=== PATIENT | male | born 1980 ===

== ENCOUNTER 2017-02-20 22:47 | Emergency (ER) | payer OTHER ==
[2017-02-20 22:55] VITALS: BP 145/86; PULSE 82; RESP 18; TEMP 98; O2SAT 100
--- NOTE | 2017-02-20 23:49 | ED PDOC ---
HPI: Male Pain Time Seen by Provider: 02/20/17 23:13 Chief Complaint (Nursing): Male Genitourinary Chief Complaint (Provider): genital itching History Per: Patient History/Exam Limitations: no limitations Onset/Duration Of Symptoms: Days (4) Current Symptoms Are (Timing): Still Present Quality Of Discomfort: Other (itching) Additional History Per: Patient Additional Complaint(s): 36 y/o male presents with itching/burning to penile head x 4 days. Denies fever , abdominal pain, penile discharge, testicular pain/swelling. Past Medical History Reviewed: Historical Data, Nursing Documentation, Vital Signs Vital Signs: Last Vital Signs Temp 98 F 02/20/17 22:50 Pulse 82 02/20/17 22:50 Resp 18 02/20/17 22:50 BP 145/86 02/20/17 22:50 Pulse Ox 100 02/20/17 22:50 - Medical History PMH: Hypercholesterolemia (NO MEDS) - Surgical History Surgical History: Appendectomy - Family History Family History: States: Unknown Family Hx - Immunization History Hx Tetanus Toxoid Vaccination: No Hx Influenza Vaccination: No Hx Pneumococcal Vaccination: No - Home Medications Home Medications: Ambulatory Orders Medication Instructions Recorded Cyclobenzaprine HCl [Flexeril] 1 tab PO TID PRN #25 tab 05/25/15 Naproxen [Naprosyn] 1 tab PO BID PRN #25 tab 05/25/15 Clotrimazole 1% Cream [Lotrimin 1%] 1 applic TP BID #1 tube 02/21/17 - Allergies Allergies/Adverse Reactions: Allergies Allergy/AdvReac Type Severity Reaction Status Date / Time No Known Allergies Allergy Verified 09/14/14 09:38 Review of Systems ROS Statement: Except As Marked, All Systems Reviewed And Found Negative Genitourinary Male: Positive for: Other (penile itching) Physical Exam - Reviewed Nursing Documentation Reviewed: Yes Vital Signs Reviewed: Yes - Physical Exam Appears: Positive for: Well, Non-toxic, No Acute Distress Head Exam: Positive for: ATRAUMATIC, NORMAL INSPECTION, NORMOCEPHALIC Skin: Positive for: Normal Color Eye Exam: Positive for: Normal appearance ENT: Positive for: Normal ENT Inspection Cardiovascular/Chest: Positive for: Regular Rate, Rhythm Respiratory: Positive for: Normal Breath Sounds Male Genital Exam: Positive for: other (uncircumsized male; erythema noted to glans when retracted; no swelling, discharge, lesions noted. exam chaperoned by Felicia Celis RN). Negative for: inguinal tenderness, lesions, urethral discharge - ECG O2 Sat by Pulse Oximetry: 100 - Progress ED Course And Treament: patient educated on proper hygiene; rx clotrimazole provided. Follow up PMD 2-3 days. Return to ED for worsening/concerning symptoms. Disposition - Clinical Impression Clinical Impression: Tiffani - Patient ED Disposition Is Patient to be Admitted: No Counseled Patient/Family Regarding: Studies Performed, Diagnosis, Need For Followup, Rx Given - Disposition Referrals: [facility] [Outside] Disposition: Routine/Home Disposition Time: 00:22 Condition: GOOD Prescriptions: Clotrimazole 1% Cream [Lotrimin 1%] 1 applic TP BID #1 tube Instructions: Tiffani (ED) Print Language: KINYARWANDA
== END 2017-02-21 00:37 | disposition home or self-care (01) ==
LOC: H.ER 22:47
DX: N48.1 Balanitis (principal); E78.00 Pure hypercholesterolemia, unspecified

== ENCOUNTER 2017-03-29 18:59 | Emergency (ER) | payer OTHER ==
[2017-03-29 19:04] VITALS: BP 150/86; PULSE 78; RESP 16; TEMP 98.8; O2SAT 99
[2017-03-29] MEDS ORDERED: Naproxen 500 MG TAB PO STA (19:12)
--- NOTE | 2017-03-29 19:18 | ED PDOC ---
Upper Extremity Pain/Injury Time Seen by Provider: 03/29/17 19:09 Chief Complaint (Nursing): Upper Extremity Problem/Injury Chief Complaint (Provider): Right shoulder pain History Per: Patient History/Exam Limitations: no limitations Onset/Duration Of Symptoms: Days (x 4) Current Symptoms Are (Timing): Still Present Additional Complaint(s): Zachary is a 36-year-old male who presents to the ED complaining of right shoulder pain, occurring intermittently for 4 days but worsened today. He describes sudden onset of the pain and denies fall/trauma. He admits to lifting heavy boxes at work. Pain is described as within the shoulder joint, and radiates down the right arm, causing difficulty lifting his right arm. No prior history of shoulder problems. PMD: None Past Medical History Reviewed: Historical Data, Nursing Documentation, Vital Signs Vital Signs: Last Vital Signs Temp 98.8 F 03/29/17 19:01 Pulse 78 03/29/17 19:01 Resp 16 03/29/17 19:01 BP 150/86 03/29/17 19:01 Pulse Ox 99 03/29/17 19:01 - Medical History PMH: Hypercholesterolemia (NO MEDS) - Surgical History Surgical History: Appendectomy - Family History Family History: States: Unknown Family Hx - Immunization History Hx Tetanus Toxoid Vaccination: No Hx Influenza Vaccination: No Hx Pneumococcal Vaccination: No - Home Medications Home Medications: Ambulatory Orders Medication Instructions Recorded Cyclobenzaprine HCl [Flexeril] 1 tab PO TID PRN #25 tab 05/25/15 Naproxen [Naprosyn] 1 tab PO BID PRN #25 tab 05/25/15 Clotrimazole 1% Cream [Lotrimin 1%] 1 applic TP BID #1 tube 02/21/17 Naproxen 1 tab PO BID PRN #14 tab 03/29/17 - Allergies Allergies/Adverse Reactions: Allergies Allergy/AdvReac Type Severity Reaction Status Date / Time No Known Allergies Allergy Verified 03/29/17 19:00 Review of Systems ROS Statement: Except As Marked, All Systems Reviewed And Found Negative Constitutional: Negative for: Other (Fall or trauma) Musculoskeletal: Positive for: Shoulder Pain (Right shoulder pain, radiating down right arm) Physical Exam - Reviewed Nursing Documentation Reviewed: Yes Vital Signs Reviewed: Yes - Physical Exam Appears: Positive for: Well, Non-toxic, No Acute Distress Head Exam: Positive for: ATRAUMATIC, NORMAL INSPECTION, NORMOCEPHALIC Skin: Positive for: Normal Color, Warm, Dry Eye Exam: Positive for: EOMI, Normal appearance, PERRL ENT: Positive for: Normal ENT Inspection Neck: Positive for: Normal, Painless ROM, Supple Cardiovascular/Chest: Positive for: Regular Rate, Rhythm. Negative for: Murmur Respiratory: Positive for: Normal Breath Sounds. Negative for: Respiratory Distress Gastrointestinal/Abdominal: Positive for: Normal Exam, Soft. Negative for: Tenderness Back: Positive for: Normal Inspection. Negative for: Vertebral Tenderness (or ran tenderness on exam) Extremity: Positive for: Normal ROM (Patient has difficulty adducting arm due to pain). Negative for: Swelling (No obvious bruising or swelling) Neurologic/Psych: Positive for: Alert, Oriented. Negative for: Motor/Sensory Deficits - ECG O2 Sat by Pulse Oximetry: 99 (RA) Pulse Ox Interpretation: Normal - Progress ED Course And Treament: xry of shoulder right: neg for calcification/neg for bony abnormality Naproxen 500 mg Medical Decision Making Medical Decision Making: Time: 19:12 Initial Impression: Right shoulder pain Initial Plan: --Patient given 500 mg Naproxen PO --Pending X-Ray Right Shoulder Scribe Attestation: Documented by Sonia Herring, acting as a scribe for Elisabet Domingo PA-C Provider Scribe Attestation: All medical record entries made by the Scribe were at my direction and personally dictated by me. I have reviewed the chart and agree that the record accurately reflects my personal performance of the history, physical exam, medical decision making, and the department course for this patient. I have also personally directed, reviewed, and agree with the discharge instructions and disposition. Disposition - Clinical Impression Clinical Impression: Shoulder strain - Patient ED Disposition Is Patient to be Admitted: No - Disposition Referrals: [facility] [Outside] Disposition: Routine/Home Disposition Time: 20:04 Condition: FAIR Prescriptions: Naproxen 1 tab PO BID PRN #14 tab PRN Reason: Pain, Moderate (4-7) Instructions: Shoulder Pain (ED) Forms: [facility] (Croatian), [facility] ED School/Work Excuse Print Language: IRAQI
--- NOTE | 2017-04-05 08:45 | RAD ---
PROCEDURE: Radiographs of the Right Shoulder HISTORY: SHOULDER PAIN COMPARISON: No prior. FINDINGS: BONES: Normal. No fracture. JOINTS: Normal. Glenohumeral and acromioclavicular joints preserved. No osteoarthritis. SOFT TISSUES: Normal. OTHER FINDINGS: None. IMPRESSION: Normal radiographs of the right shoulder.
== END 2017-03-29 20:10 | disposition home or self-care (01) ==
LOC: H.ER 18:59
DX: S43.401A Unspecified sprain of right shoulder joint, initial encounter (principal); X50.9XXA Other and unspecified overexertion or strenuous movements or postures, initial encounter; Y99.0 Civilian activity done for income or pay

== ENCOUNTER 2017-09-05 19:40 | Emergency (ER) | payer OTHER ==
[2017-09-05 19:45] VITALS: BMI 25.7
[2017-09-05 19:48] VITALS: RESP 16; TEMP 99.2; O2SAT 99
[2017-09-05 21:03] LABS: BASO % 0.7 % (0.0-2.0); EOS # 0.2 K/uL (0.0-0.7); EOS % 3.5 % (0.0-4.0); HEMOGLOBIN 13.9 g/dL (12.0-18.0); LYMPH # 2.3 K/uL (1.0-4.3); LYMPH % 36.1 % (20.0-40.0); MEAN CELL VOLUME 92.3 fl (80.0-94.0); MEAN CORPUSCULAR HEMOGLOBIN 30.7 pg (27.0-31.0); MEAN CORPUSCULAR HGB CONC 33.3 g/dL (33.0-37.0); MEAN PLATELET VOLUME 9.1 fl (7.2-11.7); MONO # 0.7 K/uL (0.0-0.8); MONO % 11.5 % (0.0-10.0); NEUT % 48.2 % (50.0-75.0); NRBC % 0.2 % (0.0-0.0); RBC 4.52 Mil/uL (4.40-5.90); RED CELL DISTRIBUTION WIDTH 13.5 % (11.5-14.5); WHITE BLOOD COUNT 6.3 K/uL (4.8-10.8)
--- NOTE | 2017-09-05 21:14 | US ---
EXAM: US Abdomen Limited, Right Upper Quadrant CLINICAL HISTORY: 37 years old, male; Pain; Abdominal pain; Epigastric; Additional info: Ruq pain TECHNIQUE: Real-time ultrasound of the right upper quadrant with image documentation. COMPARISON: No relevant prior studies available. FINDINGS: Liver: Fatty infiltration. No mass. No intrahepatic ductal dilatation. Gallbladder: No gallstones. No wall thickening. No pericholecystic fluid. No sonographic Singh's sign. Common bile duct: No dilatation. No stones. Pancreas: Obscured by overlying bowel gas. Right kidney: Normal echogenicity. No hydronephrosis. IMPRESSION: 1.No acute findings. 2.Non-acute findings are described above.
[2017-09-05 21:21] LABS: URINE BILIRUBIN NEGATIVE (NEGATIVE); URINE BLOOD NEGATIVE (NEGATIVE); URINE CLARITY CLEAR (Clear); URINE COLOR STRAW (YELLOW); URINE GLUCOSE (UA) NEG (Normal); URINE LEUKOCYTE ESTERASE NEG Leu/uL (Negative); URINE NITRATE NEGATIVE (NEGATIVE); URINE PROTEIN NEGATIVE (NEGATIVE); URINE UROBILINOGEN 0.2-1.0 mg/dL (0.2-1.0)
[2017-09-05 21:50] LABS: ALB/GLOB RATIO 1.4 (1.0-2.1); ALBUMIN 4.6 g/dL (3.5-5.0); GFR AFRICAN-AMERICAN > 60; GFR NON-AFRICAN AMERICAN > 60; LIPASE 321 U/L (23-300)
[2017-09-05 21:53] LABS: ALT/SGPT 130 U/L (21-72); AST/SGOT 76 U/L (17-59); BLOOD UREA NITROGEN 13 mg/dl (9-20)
--- NOTE | 2017-09-05 22:11 | ED PDOC ---
HPI: Abdomen Time Seen by Provider: 09/05/17 20:11 Chief Complaint (Nursing): Abdominal Pain Chief Complaint (Provider): Abdominal pain History Per: Patient History/Exam Limitations: no limitations Onset/Duration Of Symptoms: Days (2), Intermittent Episodes Additional Complaint(s): Patient is a 37 y/o male with a past medical history of hypertension presenting to the emergency department for mild right sided abdominal pain ongoing for two days. Reports that the pain is intermittent and radiates to his right flank. Denies nausea, vomiting, diarrhea, fever, shortness of breath, and other complaints. PCP: none provided. Past Medical History Reviewed: Historical Data, Nursing Documentation, Vital Signs Vital Signs: Last Vital Signs Temp 99.2 F 09/05/17 19:45 Pulse 77 09/05/17 19:45 Resp 16 09/05/17 19:45 BP 143/88 09/05/17 19:45 Pulse Ox 99 09/05/17 23:20 - Medical History PMH: HTN, Hypercholesterolemia (NO MEDS) - Surgical History Surgical History: Appendectomy - Family History Family History: States: Unknown Family Hx - Social History Current smoker - smoking cessation education provided: No Ex-Smoker (has not smoked in the last 12 months): No Alcohol: None Drugs: Denies - Immunization History Hx Tetanus Toxoid Vaccination: No Hx Influenza Vaccination: No Hx Pneumococcal Vaccination: No - Home Medications Home Medications: Ambulatory Orders Medication Instructions Recorded Cyclobenzaprine HCl [Flexeril] 1 tab PO TID PRN #25 tab 05/25/15 Naproxen [Naprosyn] 1 tab PO BID PRN #25 tab 05/25/15 Clotrimazole 1% Cream [Lotrimin 1%] 1 applic TP BID #1 tube 02/21/17 Naproxen 1 tab PO BID PRN #14 tab 03/29/17 Dicyclomine [Bentyl] 20 mg PO Q12 PRN #20 tab 09/05/17 - Allergies Allergies/Adverse Reactions: Allergies Allergy/AdvReac Type Severity Reaction Status Date / Time No Known Allergies Allergy Verified 09/05/17 19:44 Review of Systems ROS Statement: Except As Marked, All Systems Reviewed And Found Negative Constitutional: Negative for: Fever Respiratory: Negative for: Shortness of Breath Gastrointestinal: Positive for: Abdominal Pain (mild, right sided, intermittent , and radiates to right flank). Negative for: Nausea, Vomiting, Diarrhea Physical Exam - Reviewed Nursing Documentation Reviewed: Yes Vital Signs Reviewed: Yes - Physical Exam Appears: Positive for: Well, Non-toxic, No Acute Distress Head Exam: Positive for: ATRAUMATIC, NORMAL INSPECTION, NORMOCEPHALIC Skin: Positive for: Normal Color, Warm, Dry Eye Exam: Positive for: Normal appearance Neck: Positive for: Normal, Supple Cardiovascular/Chest: Positive for: Regular Rate, Rhythm Respiratory: Negative for: Accessory Muscle Use, Respiratory Distress Gastrointestinal/Abdominal: Positive for: Normal Exam, Soft. Negative for: Tenderness Extremity: Positive for: Normal ROM. Negative for: Pedal Edema Neurologic/Psych: Positive for: Alert, Oriented (x3) - Laboratory Results Result Diagrams: 09/05/17 20:57 09/05/17 20:57 - ECG ECG: Positive for: Interpreted By Me, Viewed By Me ECG Rhythm: Positive for: Sinus Rhythm (normal). Negative for: ST/T Changes Rate: 74 O2 Sat by Pulse Oximetry: 99 (RA) Pulse Ox Interpretation: Normal Medical Decision Making Medical Decision Making: Time: 20:28 Initial impression: Patient is 37 y/o male presenting with right sided abdominal pain. Initial plan: CT Abdominal/pelvic without contrast EKG ED Urine Dipstick Pepcid 20 mg IV Toradol 15 mg IV Reevaluation Reassess: 21:14 FINDINGS:US Abdomen Limited, Right Upper Quadrant Liver: Fatty infiltration. No mass. No intrahepatic ductal dilatation. Gallbladder: No gallstones. No wall thickening. No pericholecystic fluid. No sonographic Singh's sign. Common bile duct: No dilatation. No stones. Pancreas: Obscured by overlying bowel gas. Right kidney: Normal echogenicity. No hydronephrosis. IMPRESSION: 1. No acute findings. 2. Non-acute findings are described above. 20:41 FINDINGS:CT Abdomen and Pelvis Without Intravenous Contrast Lower thorax: No acute findings. ABDOMEN: Liver: Fatty infiltration with focal sparing. Gallbladder and bile ducts: No calcified stones. No ductal dilation. Pancreas: Unremarkable. No ductal dilation. Spleen: No splenomegaly. Adrenals: No mass. Kidneys and ureters: No renal calculi. No hydronephrosis. Stomach and bowel: No definite mural thickening. No obstruction. Appendix: Appendectomy. PELVIS: Bladder: Unremarkable. No stones. Reproductive: Unremarkable as visualized. ABDOMEN and PELVIS: Intraperitoneal space: No significant fluid collection. No free air. Bones/joints: No acute fracture. Soft tissues: Tiny LEFT inguinal hernia containing fat. Vasculature: Unremarkable. No aneurysm. Lymph nodes: No pathologically enlarged lymph nodes. IMPRESSION: 1. No definite CT evidence of urolithiasis. 2. Incidental/non-acute findings are described above. 23:14 Patient reports of improvement of symptoms. Patient is stable for discharge home. Diagnosis: Abdominal Pain Scribe Attestation: Documented by Bonnie Terrell, acting as a scribe for Adin Matthew MD. Provider Scribe Attestation: All medical record entries made by the Scribe were at my direction and personally dictated by me. I have reviewed the chart and agree that the record accurately reflects my personal performance of the history, physical exam, medical decision making, and the department course for this patient. I have also personally directed, reviewed, and agree with the discharge instructions and disposition. Disposition - Clinical Impression Clinical Impression: Abdominal pain - Patient ED Disposition Is Patient to be Admitted: No - Disposition Disposition: Routine/Home Disposition Time: 23:14 Condition: IMPROVED Prescriptions: Dicyclomine [Bentyl] 20 mg PO Q12 PRN #20 tab PRN Reason: abdominal pain Instructions: Abdominal Pain (ED) Forms: [facility] (Nepalese) Print Language: BARBADIAN
--- NOTE | 2017-09-05 22:41 | CT ---
EXAM: CT Abdomen and Pelvis Without Intravenous Contrast CLINICAL HISTORY: 37 years old, male; Pain; Abdominal pain; Flank; Right; Patient HX: Appendectomy; Additional info: Renal colic TECHNIQUE: Axial computed tomography images of the abdomen and pelvis without intravenous contrast. All CT scans at this facility use one or more dose reduction techniques, viz.: automated exposure control; ma/kV adjustment per patient size (including targeted exams where dose is matched to indication; i.e. head); or iterative reconstruction technique. Coronal and sagittal reformatted images were created and reviewed. COMPARISON: US - ABDOMEN LIMITED (GB INCLUDED) 2017-09-05 20:38 FINDINGS: Lower thorax: No acute findings. ABDOMEN: Liver: Fatty infiltration with focal sparing. Gallbladder and bile ducts: No calcified stones. No ductal dilation. Pancreas: Unremarkable. No ductal dilation. Spleen: No splenomegaly. Adrenals: No mass. Kidneys and ureters: No renal calculi. No hydronephrosis. Stomach and bowel: No definite mural thickening. No obstruction. Appendix: Appendectomy. PELVIS: Bladder: Unremarkable. No stones. Reproductive: Unremarkable as visualized. ABDOMEN and PELVIS: Intraperitoneal space: No significant fluid collection. No free air. Bones/joints: No acute fracture. Soft tissues: Tiny LEFT inguinal hernia containing fat. Vasculature: Unremarkable. No aneurysm. Lymph nodes: No pathologically enlarged lymph nodes. IMPRESSION: 1. No definite CT evidence of urolithiasis. 2. Incidental/non-acute findings are described above.
[2017-09-05 23:49] VITALS: BP 148/90; PULSE 88
== END 2017-09-05 23:49 | disposition home or self-care (01) ==
LOC: H.ER 19:40
DX: R10.9 Unspecified abdominal pain (principal); I10 Essential (primary) hypertension; E78.00 Pure hypercholesterolemia, unspecified
CPT/HCPCS: 74176; 76705; 80053; 81003; 83690; 85025; 96374; 96375; 99283; J1885

== ENCOUNTER 2017-10-01 00:42 | Emergency (ER) | payer OTHER ==
[2017-10-01 00:42] VITALS: BMI 25.7
[2017-10-01 01:57] VITALS: BP 137/83; PULSE 96; RESP 16; TEMP 98.6; O2SAT 98
[2017-10-01 03:46] LABS: BASO % 0.6 % (0.0-2.0); EOS % 0.4 % (0.0-4.0); HEMOGLOBIN 14.6 g/dL (12.0-18.0); LYMPH # 1.8 K/uL (1.0-4.3); LYMPH % 32.2 % (20.0-40.0); MEAN CELL VOLUME 89.5 fl (80.0-94.0); MEAN CORPUSCULAR HEMOGLOBIN 30.8 pg (27.0-31.0); MEAN CORPUSCULAR HGB CONC 34.4 g/dL (33.0-37.0); MEAN PLATELET VOLUME 8.7 fl (7.2-11.7); MONO # 0.5 K/uL (0.0-0.8); MONO % 9.7 % (0.0-10.0); NEUT # 3.1 K/uL (1.8-7.0); NEUT % 57.1 % (50.0-75.0); NRBC % 0.2 % (0.0-0.0); RBC 4.72 Mil/uL (4.40-5.90); RED CELL DISTRIBUTION WIDTH 13.4 % (11.5-14.5); WHITE BLOOD COUNT 5.4 K/uL (4.8-10.8)
--- NOTE | 2017-10-01 04:13 | ED PDOC ---
HPI:Nausea, Vomiting, Diarrhea Time Seen by Provider: 10/01/17 03:16 Chief Complaint (Nursing): Alcohol Ingestion Chief Complaint (Provider): Vomiting History Per: Patient History/Exam Limitations: no limitations Current Symptoms Are (Timing): Still Present Quality Of Discomfort: denies: "Pain" Associated Symptoms: denies: Fever, Diarrhea, Chest Pain Additional Complaint(s): 37 year old male presents to ED with complaints of persistent vomiting since earlier today and has a history of alcohol abuse. Notes emesis is non-bloody and non-bilious. Admits to drinking for the past 4 days with his last drink x12 hours [employer]. (-) abdominal pain, diarrhea, fever, cough, SOB, or chest pain. PCP: None Past Medical History Reviewed: Historical Data, Nursing Documentation, Vital Signs Vital Signs: Last Vital Signs Temp 98.6 F 10/01/17 01:54 Pulse 96 H 10/01/17 01:54 Resp 16 10/01/17 01:54 BP 137/83 10/01/17 01:54 Pulse Ox 98 10/01/17 01:54 - Medical History PMH: HTN, Hypercholesterolemia (NO MEDS) - Surgical History Surgical History: Appendectomy - Family History Family History: States: Unknown Family Hx - Social History Current smoker - smoking cessation education provided: No Ex-Smoker (has not smoked in the last 12 months): No Alcohol: Other (hx of alcohol abuse: drinks 3-4 times weekly) - Immunization History Hx Tetanus Toxoid Vaccination: No Hx Influenza Vaccination: No Hx Pneumococcal Vaccination: No - Home Medications Home Medications: Ambulatory Orders Medication Instructions Recorded Cyclobenzaprine HCl [Flexeril] 1 tab PO TID PRN #25 tab 05/25/15 Naproxen [Naprosyn] 1 tab PO BID PRN #25 tab 05/25/15 Clotrimazole 1% Cream [Lotrimin 1%] 1 applic TP BID #1 tube 02/21/17 Naproxen 1 tab PO BID PRN #14 tab 03/29/17 Dicyclomine [Bentyl] 20 mg PO Q12 PRN #20 tab 09/05/17 Famotidine [Pepcid] 20 mg PO Q12 #14 tab 10/01/17 Ondansetron ODT [Zofran ODT] 4 mg PO Q6 PRN #8 odt 10/01/17 - Allergies Allergies/Adverse Reactions: Allergies Allergy/AdvReac Type Severity Reaction Status Date / Time No Known Allergies Allergy Verified 09/05/17 19:44 Review of Systems ROS Statement: Except As Marked, All Systems Reviewed And Found Negative Constitutional: Negative for: Fever Cardiovascular: Negative for: Chest Pain Respiratory: Negative for: Cough, Shortness of Breath Gastrointestinal: Positive for: Vomiting. Negative for: Abdominal Pain, Diarrhea Physical Exam - Reviewed Nursing Documentation Reviewed: Yes Vital Signs Reviewed: Yes - Physical Exam Appears: Positive for: Non-toxic, No Acute Distress Skin: Positive for: Normal Color, Warm, Dry Eye Exam: Positive for: Normal appearance ENT: Positive for: Normal ENT Inspection Cardiovascular/Chest: Positive for: Regular Rate, Rhythm. Negative for: Murmur Respiratory: Positive for: Normal Breath Sounds. Negative for: Respiratory Distress Gastrointestinal/Abdominal: Positive for: Normal Exam, Soft. Negative for: Tenderness Extremity: Negative for: Deformity Neurologic/Psych: Positive for: Alert, Oriented. Negative for: Motor/Sensory Deficits - Laboratory Results Result Diagrams: 10/01/17 03:42 10/01/17 03:42 - ECG O2 Sat by Pulse Oximetry: 98 (RA) Pulse Ox Interpretation: Normal Medical Decision Making Medical Decision Makin Initial impression: vomiting in setting of alcohol abuse Initial plan: * EtOH serum * Labs * UDrug screen * Lipase * NS IV * Pepcid 20mg IV * Zofran Inj 4mg IV * Accucheck * UA * Re-eval 0521 Labs reviewed: no clinically significant abnormalities except for elevated blood alcohol level. Patient counseled regarding risks of excessive alcohol use. Patient stable for discharge home. Dx: alcohol abuse and gastritis Condition: improved Scribe Attestation: Documented by Adriane Warren acting as a scribe for Adin Matthew MD. Scribe Attestation: All medical record entries made by the Scribe were at my direction and personally dictated by me. I have reviewed the chart and agree that the record accurately reflects my personal performance of the history, physical exam, medical decision making, and the department course for this patient. I have also personally directed, reviewed, and agree with the discharge instructions and disposition. Disposition - Disposition Disposition: Routine/Home Disposition Time: 05:21 Condition: IMPROVED Prescriptions: Famotidine [Pepcid] 20 mg PO Q12 #14 tab Ondansetron ODT [Zofran ODT] 4 mg PO Q6 PRN #8 odt PRN Reason: Nausea/Vomiting Forms: [facility] (Cameroonian)
[2017-10-01] MEDS: Sodium Chloride 0.9% 1,000 ML IV STA (04:31)
[2017-10-01 05:13] LABS: ALB/GLOB RATIO 1.5 (1.0-2.1); ALBUMIN 4.5 g/dL (3.5-5.0); ALT/SGPT 191 U/L (21-72); AST/SGOT 249 U/L (17-59); BLOOD UREA NITROGEN 17 mg/dl (9-20); CALCIUM 8.3 mg/dL (8.4-10.2); GFR AFRICAN-AMERICAN > 60; GFR NON-AFRICAN AMERICAN > 60; LIPASE 238 U/L (23-300)
== END 2017-10-01 05:37 | disposition home or self-care (01) ==
LOC: H.ER 00:42
DX: K29.70 Gastritis, unspecified, without bleeding (principal); F10.10 Alcohol abuse, uncomplicated; E78.00 Pure hypercholesterolemia, unspecified; I10 Essential (primary) hypertension
CPT/HCPCS: 80053; 80320; 82948; 83690; 85025; 96360; 99282; J2405; J7040

== ENCOUNTER 2018-06-06 08:03 | Emergency (ER) | payer OTHER ==
[2018-06-06 08:05] VITALS: BMI 26.5
--- NOTE | 2018-06-06 09:16 | ED PDOC ---
HPI: Abdomen Time Seen by Provider: 06/06/18 08:31 Chief Complaint (Nursing): Abdominal Pain Additional Complaint(s): 38 y/o M with a PMHx of appedectomy 7 years ago, presents to ED complaining of b/l lower abdominal pain that began 3 days ago. Pain is described as burning, intermittent, on bilateral lower quadrants, radiates to suprapubic, both testes and lower back. Pt reports having subjective fever yesterday and today. Pt has soft bowel movements but today he had hard stools with NO blood or mucus. Pt reports urinary frequency but denies dysuria, penile discharge, recent trauma or saddle anesthesia. Pt is sexually active with only, no Hx of STI's. PMD: none Meds: none NKA -PMHx: Pt was told to have high BP and high cholesterol, was instructed for lifestyle changes but never followed up. -PSHx: appendectomy 7 years ago -FHx: NC -SHx: drinks 2-3 shots of tequila every night, NO tobacco and NO rec drugs. Past Medical History Vital Signs: Last Vital Signs Temp 98.9 F 06/06/18 08:05 Pulse 68 06/06/18 08:05 Resp 16 06/06/18 08:05 BP 154/90 H 06/06/18 08:05 Pulse Ox 99 06/06/18 08:05 - Medical History PMH: HTN, Hypercholesterolemia (NO MEDS) - Surgical History Surgical History: Appendectomy - Family History Family History: States: Unknown Family Hx - Social History Current smoker - smoking cessation education provided: No - Immunization History Hx Tetanus Toxoid Vaccination: No Hx Influenza Vaccination: No Hx Pneumococcal Vaccination: No - Home Medications Home Medications: Ambulatory Orders Medication Instructions Recorded Cyclobenzaprine HCl [Flexeril] 1 tab PO TID PRN #25 tab 05/25/15 Naproxen [Naprosyn] 1 tab PO BID PRN #25 tab 05/25/15 Clotrimazole 1% Cream [Lotrimin 1%] 1 applic TP BID #1 tube 02/21/17 Naproxen 1 tab PO BID PRN #14 tab 03/29/17 Dicyclomine [Bentyl] 20 mg PO Q12 PRN #20 tab 09/05/17 Famotidine [Pepcid] 20 mg PO Q12 #14 tab 10/01/17 Ondansetron ODT [Zofran ODT] 4 mg PO Q6 PRN #8 odt 10/01/17 - Allergies Allergies/Adverse Reactions: Allergies Allergy/AdvReac Type Severity Reaction Status Date / Time No Known Allergies Allergy Verified 06/06/18 08:22 Review of Systems Constitutional: Positive for: Fever. Negative for: Chills Eyes: Negative for: Pain, Vision Change ENT: Negative for: Throat Pain Cardiovascular: Negative for: Chest Pain, Palpitations Respiratory: Negative for: Cough, Shortness of Breath, Pleuritic Pain, Wheezing Gastrointestinal: Positive for: Abdominal Pain, Constipation. Negative for: Nausea, Vomiting, Diarrhea, Melena, Hematochezia, Hematemesis Genitourinary Male: Positive for: Frequency, Scrotal Pain. Negative for: Dysuria, Incontinence, Hematuria, Penile Discharge, Rash, Penile Pain Musculoskeletal: Positive for: Back Pain Skin: Negative for: Rash, Lesions Physical Exam - Physical Exam Appears: Positive for: Well, No Acute Distress Head Exam: Positive for: ATRAUMATIC, NORMAL INSPECTION Skin: Positive for: Normal Color. Negative for: Pallor, Rash, Jaundice Eye Exam: Positive for: Normal appearance, EOMI ENT: Negative for: Nasal Congestion, Pharyngeal Erythema, Tonsillar Exudate Neck: Positive for: Normal, Painless ROM, Supple Cardiovascular/Chest: Positive for: Regular Rate, Rhythm Respiratory: Positive for: Normal Breath Sounds. Negative for: Rhonchi, Wheezing Gastrointestinal/Abdominal: Positive for: Bowel Sounds, Soft, Tenderness (on b/l lower quadrants. ). Negative for: Organomegaly, Mass, Distended, Guarding, Aleena ound Male Genital Exam: Positive for: normal genitalia. Negative for: inguinal tenderness, scrotum tenderness (R), scrotum tenderness (L), urethral discharge Extremity: Positive for: Normal ROM Neurologic/Psych: Positive for: Alert, Oriented - Laboratory Results Result Diagrams: 06/06/18 09:27 06/06/18 09:27 - ECG O2 Sat by Pulse Oximetry: 99 Medical Decision Making Medical Decision Making: At 09:05, pt was evaluated and examined with Dr Matias. Pt not seen in discomfort, talking pleasantly with in the room. --CBC, CMP, U/A, Urine Culture and Abdominal X-ray (obstructive series ordered. --PO Tylenol ordered for pain management. At 10:30, pt reported pain has improved after medication, intesntiy has decreased for 04/11 to 01/09. -Labs reviewed, CBC wnl, CMP remarkable for transaminitis -X-ray of abdomen consistent with constipation. At 12:10, pt reports pain is not present anymore. -Lipase WNL. -Pt counseled on elevated LFT's. Alcohol cessation was recommended with dietary changes. -Pt instructed to increase water intake, increase vegetables and fruits to his diet, high-fiber aliments were recommended. -Pt will be discharge home. Disposition - Clinical Impression Clinical Impression: Constipation, Abdominal pain, Transaminitis - Patient ED Disposition Is Patient to be Admitted: No - Disposition Referrals: [facility] [Outside] Disposition: Routine/Home Disposition Time: 12:18 Condition: GOOD Instructions: Constipation in Adults, High Fiber Diet Forms: [facility] (German) Print Language: DIVEHI
[2018-06-06 09:41] LABS: BASO % 0.6 % (0.0-2.0); EOS # 0.1 K/uL (0.0-0.7); EOS % 2.2 % (0.0-4.0); HEMOGLOBIN 14.9 g/dL (12.0-18.0); LYMPH # 1.3 K/uL (1.0-4.3); LYMPH % 25.9 % (20.0-40.0); MEAN CELL VOLUME 90.7 fl (80.0-94.0); MEAN CORPUSCULAR HEMOGLOBIN 30.7 pg (27.0-31.0); MEAN CORPUSCULAR HGB CONC 33.8 g/dL (33.0-37.0); MEAN PLATELET VOLUME 8.8 fl (7.2-11.7); MONO # 0.4 K/uL (0.0-0.8); MONO % 8.8 % (0.0-10.0); NEUT # 3.1 K/uL (1.8-7.0); NEUT % 62.5 % (50.0-75.0); RBC 4.86 Mil/uL (4.40-5.90); RED CELL DISTRIBUTION WIDTH 13.4 % (11.5-14.5)
[2018-06-06 09:52] LABS: URINE BILIRUBIN NEGATIVE (NEGATIVE); URINE BLOOD NEGATIVE (NEGATIVE); URINE CLARITY CLEAR (Clear); URINE COLOR COLORLESS (YELLOW); URINE GLUCOSE (UA) NEG (Normal); URINE LEUKOCYTE ESTERASE NEG Leu/uL (Negative); URINE PROTEIN NEGATIVE (NEGATIVE); URINE UROBILINOGEN 0.2-1.0 mg/dL (0.2-1.0)
[2018-06-06 10:00] LABS: ALB/GLOB RATIO 1.3 (1.0-2.1); ALBUMIN 4.5 g/dL (3.5-5.0); ALT/SGPT 155 U/L (21-72); AST/SGOT 101 U/L (17-59); BLOOD UREA NITROGEN 16 mg/dl (9-20); CALCIUM 9.6 mg/dL (8.4-10.2); GFR NON-AFRICAN AMERICAN > 60
--- NOTE | 2018-06-06 10:49 | RAD ---
Date of service: 06/06/2018 PROCEDURE: Radiographs of the chest and abdomen (obstructive series) HISTORY: Lower abdominal pain COMPARISON: No prior. TECHNIQUE: AP radiograph of the chest, with upright and supine radiographs of the abdomen. FINDINGS: CHEST: Lungs: Clear. Cardiovascular: Normal size heart. No pulmonary vascular congestion. Pleura: No pleural fluid. No pneumothorax. Other findings: None. ABDOMEN AND PELVIS: Bowel: Unremarkable bowel gas pattern. No evidence of mechanical obstruction. Free air: None. Bones: Unremarkable. Other findings: None. IMPRESSION: Unremarkable radiographs of chest and abdomen. No evidence of mechanical bowel obstruction.
[2018-06-06] MEDS: Sodium Chloride 0.9% 1,000 ML IV SCH ×3 (10:56→11:41)
[2018-06-06 12:36] VITALS: BP 137/82; PULSE 69; RESP 18; TEMP 98.6; O2SAT 100
== END 2018-06-06 12:37 | disposition home or self-care (01) ==
LOC: H.ER 08:03
DX: K59.00 Constipation, unspecified (principal); R10.9 Unspecified abdominal pain; E78.00 Pure hypercholesterolemia, unspecified; I10 Essential (primary) hypertension
CPT/HCPCS: 74022; 80053; 81003; 83690; 85025; 87086; 96360; 99283; J7030